=== PATIENT | male | born 1980 | race Caucasian/White ===

== ENCOUNTER 2025-07-07 13:30 | Emergency (ER) | payer BC, SELFPAY ==
[2025-07-07 13:32] VITALS: BP 125/79; PULSE 58; RESP 16; TEMP 36.1; O2SAT 100
--- NOTE | 2025-07-07 13:45 | DI.RAD_ITS ---
Exam(s) XR KNEE RT 3V AP,LAT,GUILLERMO XR TIB/FIB RT EXAM: XR KNEE RT 3V AP,LAT,GUILLERMO and XR tib/fib RT CLINICAL HISTORY: Trauma. TECHNIQUE: 2D digital imaging was performed of the right tib/fib and knee. Seven views obtained. AP, lateral and PA tunnel views were obtained. COMPARISON: There are no priors for comparison. FINDINGS: BONES: No acute fracture is present. No bony destructive lesion is seen. JOINTS: The knee is normally aligned. No joint effusion is seen. SOFT TISSUE: There are 2 well-circumscribed osseous density superior to the patella on the lateral view which appear chronic. There is a well corticated osseous density posterior to the distal tibia which appears old. The extensor mechanism appears thickened superior to the patella. IMPRESSION: 1. No definite acute fracture or dislocation is seen in the knee or right tibia or fibula. 2. Soft tissue thickening superior to the patella which may reflect extensor mechanism injury. Please correlate clinically. If there is concern for soft tissue injury, an MRI should be considered for further evaluation. 3. Well corticated osseous densities superior to the patella and posterior to the distal tibia. These appear old. DATA REPOSITORY: RADIATION DOSE DELIVERED:
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
[2025-07-07] MEDS: Ondansetron O.D.T. 4 MG TABEF PO (14:48)
[2025-07-07] MEDS: Acetaminophen 500 MG TAB PO (14:48)
--- NOTE | 2025-07-08 08:31 | NUR.NOTE ---
Accessed Pt chart to look up diagnosis and add it to the [facility] paperwork.
== END 2025-07-07 16:01 | disposition home or self-care (01) ==
LOC: ER 15:36
PROVIDERS: Emergency Provider Registered Nurse Emergency
DX: M23.8X2 Other internal derangements of left knee (principal); S89.82XA Other specified injuries of left lower leg, initial encounter; V18.4XXA Pedal cycle driver injured in noncollision transport accident in traffic accident, initial encounter; Y92.482 Bike path as the place of occurrence of the external cause; Y93.55 Activity, bike riding
CPT/HCPCS: 73562; 99283; 73590